=== PATIENT | female | born 1965 | race Two or more races ===

== ENCOUNTER 2023-07-04 11:43 | Outpatient (CLI) | payer OTHER | END 2023-07-04 11:47 | disposition home or self-care (01) | LOC: SONOGRAMA 11:43 | PROVIDERS: ATTEND Pathology Anatomic Pathology & Clinical Pathology | DX: D44.0 Neoplasm of uncertain behavior of thyroid gland (principal); E07.9 Disorder of thyroid, unspecified ==

== ENCOUNTER 2023-10-07 11:00 | Outpatient (CLI) | payer OTHER | END 2023-10-07 11:03 | disposition home or self-care (01) | LOC: SONOGRAMA 11:00 | PROVIDERS: ATTEND Pathology Anatomic Pathology | DX: D34 Benign neoplasm of thyroid gland (principal); E07.89 Other specified disorders of thyroid; E04.2 Nontoxic multinodular goiter ==